=== PATIENT | female | born 1980 | race Caucasian/White ===

== ENCOUNTER 2017-11-13 14:27 | Day surgery (SDC) | payer BC ==
[2017-11-13 11:52] VITALS: BMI 19.7
[2017-11-13] MEDS ORDERED: Propofol 10 mg/ml Inj (20 ML) ONE (15:58)
[2017-11-13] MEDS ORDERED: Iodixanol 320 mg/ml 50 ml Sol IV ONE (15:58)
[2017-11-13] MEDS ORDERED: Iohexol 240 (50 ml) UR ONE (16:08)
[2017-11-13] MEDS ORDERED: Sevoflurane - Inhalation Anesthetic Liq (250 ml) ONE (16:16)
[2017-11-13] MEDS ORDERED: Oxycodone/Acetaminophen 5/325 mg Tab PO PRN (16:38)
[2017-11-13] MEDS: HYDROmorphone 0.5 mg/0.5 ml ISec IVP PRN ×2 (16:40→16:55)
[2017-11-13] MEDS ORDERED: Lactated Ringer's 1,000 ML IV SCH (16:45)
[2017-11-13] MEDS ORDERED: HYDROmorphone 0.5 mg/0.5 ml ISec ONE ×2 (16:56→17:19)
[2017-11-13] MEDS ORDERED: Gentamicin 80 mg/2mL Inj. ONE (16:59)
[2017-11-13] MEDS ORDERED: Gentamicin 80 mg/2mL Inj. IVPB ONE (17:00)
[2017-11-13] MEDS ORDERED: HYDROmorphone 0.5 mg/0.5 ml ISec IVP ONE (17:21)
[2017-11-13 18:00] VITALS: RESP 18; TEMP 97.8
[2017-11-13 19:32] VITALS: BP 117/70; PULSE 50; O2SAT 99
--- NOTE | 2017-11-14 10:52 | RAD ---
Date of service: 11/13/2017 PROCEDURE: Retrograde pyelogram HISTORY: HEMATURIA RECURRENT INFECTIONS COMPARISON: TECHNIQUE: 4.2 seconds of fluoro time. 0.53 mGy cumulative dose. 5 images obtained FINDINGS: There are no filling defects seen in the renal collecting systems or ureters. IMPRESSION: As above
--- NOTE | 2017-11-16 03:20 | PN ---
DATE: 11/13/2017 IMMEDIATE POSTOP NOTE SUBJECTIVE: See the history and physical and the operative note for further details, but basically a very pleasant lady, who is now in the recovery room in stable condition. See the history and physical and the operative note. Her vital signs remained stable. She is in the immediate postop workup. DIAGNOSES: Hematuria, voiding dysfunction, abdominal pain. PLAN: The plan is as follows, 1. The patient will now be discharged home on antibiotics. 2. We will discuss further options in terms of perhaps dietary therapy and other options and we will keep a close eye. She does have some underlying hematuria, but there was no obvious abnormalities today. We will need to keep a close eye on this patient. Patient remains stable now. John Funez MD
--- NOTE | 2017-11-16 11:30 | HP ---
UROLOGY ADMISSION HISTORY AND PHYSICAL REASON FOR ADMISSION: Workup of abdominal pain and hematuria. HISTORY OF PRESENT ILLNESS: Ms. Melendez is a very pleasant 37-year-old lady who has significant abdominal pain and generalized discomfort; whether she is voiding or nonvoiding, she has a feeling of discomfort in her bladder and she is now here today for further evaluation. PAST MEDICAL AND SURGICAL HISTORY: As listed on the chart, no history of an AL or CVA. Her PARTS DEPARTMENT MANAGER history is essentially otherwise unremarkable, baby is noted. REVIEW OF SYSTEMS: Listed above, noncontributory. MEDICATIONS: See chart. SOCIAL HISTORY: Her mother works in [employer] in the [employer] office. She is here today with her mother. She has actually graduated from [employer]. Otherwise unremarkable. No significant social history. ALLERGIES: . PHYSICAL EXAMINATION: GENERAL: A well-nourished female, in no apparent distress. VITAL SIGNS: Within normal limits, included in the chart. LYMPHATIC: No cervical or axillary lymphadenopathy. LUNGS: Clear. HEART: Normal S1 and S2. ABDOMEN: Overall, soft and nontender. No flank masses. There is no abdominal distention. PELVIC: She had a cysto that I mentioned now. No pelvic or rectal masses are detected. LABORATORY DATA: Labs, see the chart. DIAGNOSES: Abdominal pain and hematuria. A very pleasant 37-year-old lady. She is here for further diagnostic study. We explained to her the risks and benefits of not doing any workup. So, we are going to do a cystoscopy; if we see any abnormalities, do biopsy and then further plans will follow. She is here today for examination under anesthesia, for a cystoscopy, for possible biopsy and for bilateral retrograde pyelogram. I have explained to the patient the risks of workup, risks of not working up. Further plans will follow depending on what we find clinically. So, the plan is as follows: 1. Antibiotic prophylaxis. 2. Cystoscopy. 3. Possible biopsy. 4. Possible retrograde and then, further plans will follow. John Funez MD
--- NOTE | 2017-11-16 13:51 | OP ---
PROCEDURE DATE: 11/13/2017 UROLOGY OPERATIVE NOTE PREOPERATIVE DIAGNOSES: Hematuria, abdominal pain, bladder pain. POSTOPERATIVE DIAGNOSES: Hematuria, abdominal pain, bladder pain. PROCEDURES PERFORMED: Exam under anesthesia, cystoscopy, bilateral retrograde pyelogram. BLOOD LOSS: Less than 10 mL. SPECIMENS: None. COMPLICATIONS: None. INDICATIONS: See history and physical for further details. A very pleasant lady, 37 years old, here for further testing. We discussed options for workup and options of not working up. After discussing the options with the patient, he is here for the above-listed procedure. The other findings today are as follows: 1. There are no bladder lesions. 2. There are no specific abnormalities detected. Normal upper tracts are noted. Films were submitted to the radiologist to read, but I do not see any stones. Nearly essentially negative exam. There were no pelvic or rectal masses. For indications, see history and physical for further details. A very pleasant lady here for the above procedure. DESCRIPTION OF PROCEDURE: After obtaining informed consent, the patient was placed on the table. Routine monitors were placed. Time-out was called to confirm the patient positioning. Patient received antibiotic prophylaxis. We began the procedure in the following fashion. Cystoscope was introduced via the urethra. The bladder was inspected carefully, there were no bladder lesions. The ureteral orifice was identified, clear efflux from both, see the pictures taken on the chart. Bilateral retrograde pyelograms were performed. Biomedical Engineering Technician films were essentially unremarkable and there were no obvious abnormalities. Bladder was emptied, cystoscope removed. Patient tolerated the procedure well without complications. Exam under anesthesia revealed normal external genitalia. No pelvic or rectal masses. Patient tolerated the procedure without complications. John Funez MD
== END 2017-11-13 19:49 | disposition home or self-care (01) ==
LOC: SDS 14:27
PROVIDERS: ATTEND Urology
DX: R31.9 Hematuria, unspecified (principal); R10.9 Unspecified abdominal pain
CPT/HCPCS: 52005; 74420; 84703; J0690; J1170; J1580; J2405; J2704; J3010; J7120; Q9966; Q9967

== ENCOUNTER 2017-11-28 13:53 | Emergency (ER) | payer BC ==
[2017-11-28 13:54] VITALS: BMI 19.7
[2017-11-28] MEDS ORDERED: Albuterol-Ipratrop 3 mg / 0.5 (3 ml) UD IH STA (14:44)
--- NOTE | 2017-11-28 14:51 | ED PDOC ---
Arrival/HPI - General Chief Complaint: Shortness Of Breath Time Seen by Provider: 11/28/17 14:31 Historian: Patient, Parent - History of Present Illness Time/Duration: Other (Several weeks) Symptom Onset: Gradual Symptom Course: Worsening Quality: Other (Pleuritic) Severity Level: Mild Activities at Onset: Rest Associated Symptoms (Text): 11/28/17 14:49 Patient complains of a 2 to three-week history of pleuritic chest pain made worse by palpation breathing and movement along with shortness of breath. She had a sore throat several months ago. No cough congestion or URI. No sputum production. No fever or chills. No travel or exposure. No injury or trauma. No diaphoresis. No dizziness or lightheadedness. No nausea or vomiting. She does not appear ill or uncomfortable. Past Medical History - Cardiac Hx Pacemaker: No - Neurological Hx Paralysis: No - Hematological/Oncological Hx Blood Transfusions: No - Musculoskeletal/Rheumatological Hx Musculoskeletal Disorders: No - Psychiatric Hx Emotional Abuse: No Hx Physical Abuse: No Hx Substance Use: No - Surgical History Other/Comment: x2 C-sections - Anesthesia Hx Anesthesia Reactions: No Hx Malignant Hyperthermia: No - Suicidal Assessment Feels Threatened In Home Enviroment: No Family/Social History - Physician Review Nursing Documentation Reviewed: Yes Family/Social History: Unknown Family HX Smoking Status: Never Smoked Hx Alcohol Use: No Hx Substance Use: No Allergies/Home Meds Allergies/Adverse Reactions: Allergies No Known Allergies Allergy (Verified 11/28/17 14:15) Home Medications: Home Meds Medication Instructions Recorded Confirmed Propranolol [Inderal] 10 mg PO BID 11/28/17 11/28/17 Review of Systems - Physician Review All systems were reviewed & negative as marked: Yes - Review of Systems Constitutional: Normal Respiratory: SOB. absent: Cough, Sputum, Wheezing Cardiovascular: Chest Pain. absent: Palpitations, Syncope Gastrointestinal: Normal. absent: Abdominal Pain, Nausea, Vomiting Genitourinary Female: absent: Dysuria, Frequency, Hematuria Neurological: absent: Headache, Dizziness, Focal Weakness Physical Exam Vital Signs Temp Pulse Resp BP Pulse Ox 11/28/17 14:09 98.7 F 77 16 134/73 100 Temperature: Afebrile Blood Pressure: Normal Pulse: Regular Respiratory Rate: Normal Appearance: Positive for: Well-Appearing, Non-Toxic, Comfortable, Other (Anxious ) Pain Distress: None Mental Status: Positive for: Alert and Oriented X 3 - Systems Exam Head: Present: Atraumatic, Normocephalic Pupils: Present: PERRL Extroacular Muscles: Present: EOMI Conjunctiva: Present: Normal Ears: Present: NORMAL TM, Normal Canal. No: Erythema, TM Bulging Mouth: Present: Moist Mucous Membranes Pharnyx: No: ERYTHEMA, EXUDATE, TONSILS ENLARGED Neck: Present: Normal Range of Motion Respiratory/Chest: Present: Clear to Auscultation, Good Air Exchange, Decreased Breath Sounds, Tender to Palpation (Chest is tender to palpation which does reproduce her pain). No: Respiratory Distress, Accessory Muscle Use Cardiovascular: Present: Regular Rate and Rhythm, Normal S1, S2. No: Murmurs Abdomen: No: Tenderness, Distention, Peritoneal Signs, Rebound, Guarding Back: Present: Normal Inspection. No: CVA Tenderness Upper Extremity: Present: Normal Inspection. No: Cyanosis, Edema Lower Extremity: Present: Normal Inspection. No: Edema, CALF TENDERNESS Neurological: Present: GCS=15, CN II-XII Intact, Speech Normal, Motor Func Grossly Intact Skin: Present: Warm, Dry, Normal Color. No: Rashes Psychiatric: Present: Alert, Oriented x 3, Normal Insight, Normal Concentration , Anxious Medical Decision Making ED Course and Treatment: 11/28/17 14:51 EKG shows normal sinus rhythm rate approximately [address] or T-wave changes. 11/28/17 16:20 Markedly improved post Toradol. Workup is unremarkable. Treat as pleurisy. Follow-up with PMD. Follow up in ER as needed. - Lab Interpretations Lab Results: 11/28/17 15:10 11/28/17 15:10 Lab Results 11/28/17 15:10: Sodium 139, Potassium 4.3, Chloride 105, Carbon Dioxide 23, Anion Gap 16, BUN 10, Creatinine 0.5 L, Est GFR ( Amer) > 60, Est GFR ( Non-Af Amer) > 60, Random Glucose 92, Calcium 9.2, Magnesium 2.2, Total Bilirubin 0.4, AST 23, ALT 23, Alkaline Phosphatase 66, Lactate Dehydrogenase 314 L, Total Creatine Kinase 60, Troponin I < 0.01, NT-Pro-B Natriuret Pep 47.9 , Total Protein 7.7, Albumin 4.5, Globulin 3.2, Albumin/Globulin Ratio 1.4 11/28/17 15:10: D-Dimer, Quantitative 77 11/28/17 15:10: WBC 8.2, RBC 4.12, Hgb 12.8, Hct 37.3, MCV 90.5, MCH 31.1, MCHC 34.3, RDW 13.3, Plt Count 227, MPV 11.1 H, Gran % 77.7 H, Lymph % (Auto) 17.8 L , [place] % (Auto) 3.8, Eos % (Auto) 0.5 L, Baso % (Auto) 0.2, Gran # 6.36, Lymph # (Auto) 1.5, [place] # (Auto) 0.3, Eos # (Auto) 0.0, Baso # (Auto) 0.02 11/28/17 14:40: Urine Color Light yellow, Urine Appearance Slight-cloudy, Urine pH 8.0, Ur Specific [place] 1.020, Urine Protein Trace H, Urine Glucose (UA) Negative, Urine Ketones Negative, Urine Blood Negative, Urine Nitrate Negative, Urine Bilirubin Negative, Urine Urobilinogen 0.2, Ur Leukocyte Esterase Negative , Urine RBC Pending, Urine WBC Pending - RAD Interpretation Radiology Orders: 11/28/17 14:44 CHEST PORTABLE [RAD] Stat Chest one view shows no infiltrate or effusion cardiomegaly or pneumothorax. Blackjack Dealer: Radiologist - Medication Orders Current Medication Orders: Discontinued Medications Albuterol/Ipratropium (Duoneb 3 Mg/0.5 Mg (3 Ml) Ud) 3 ml IH STAT STA Stop: 11/28/17 14:45 Last Admin: 11/28/17 15:34 Dose: 3 ml Ketorolac Tromethamine (Toradol) 15 mg IVP STAT STA Stop: 11/28/17 14:49 Last Admin: 11/28/17 15:34 Dose: 15 mg MAR Pain Assessment Document 11/28/17 15:34 [email or web address] (Rec: 11/28/17 15:34 [email or web address] [id number]) Pain Reassessment Is this a pain reassessment? No Sleep Is patient sleeping during reassessment? No Presence of Pain Presence of Pain Yes Pain Scale Used Pain Scale Used Numeric Location Pain Location Body Site Generalized Description Description Constant Intensity of Pain at present 3 Pain Behavior Facial Grimacing Aggravating Factors Changing Position Alleviating Factors/Management Medication Techniques Alleviating Factors Medication IVP Administration Document 11/28/17 15:34 [email or web address] (Rec: 11/28/17 15:34 [email or web address] [id number]) Charges for Administration # of IVP Administrations 1 Disposition/Present on Arrival - Present on Arrival Any Indicators Present on Arrival: No History of DVT/PE: No History of Uncontrolled Diabetes: No Urinary Catheter: No History of Decub. Ulcer: No History Surgical Site Infection Following: None - Disposition Have Diagnosis and Disposition been Completed?: Yes Diagnosis: Pleuritic chest pain, Dyspnea Disposition: HOME/ ROUTINE Disposition Time: 16:21 Patient Plan: Discharge Condition: IMPROVED Discharge Instructions (ExitCare): Chest Pain (ED), Pleuritic Chest Pain Additional Instructions: Follow-up with PMD. Follow up in ER as needed. Do not exert herself. Prescriptions: Naproxen [Naprosyn] 500 mg PO BID #14 tab Forms: [employer] (Lithuanian)
[2017-11-28 15:20] LABS: URINE BILIRUBIN NEGATIVE (NEGATIVE); URINE BLOOD NEGATIVE (NEGATIVE); URINE GLUCOSE (UA) NEGATIVE (NEGATIVE); URINE LEUKOCYTE ESTERASE NEGATIVE Leu/uL (NEGATIVE); URINE PROTEIN TRACE mg/dL (<30 mg/dL); URINE UROBILINOGEN 0.2 E.U./dL (<1 E.U./dL)
[2017-11-28 15:22] LABS: URINE APPEARANCE SLIGHT-CLOUDY (CLEAR); URINE COLOR LIGHT YELLOW (YELLOW)
[2017-11-28 15:23] LABS: BASO # 0.02 K/mm3 (0.0-2.0); BASO % 0.2 % (0.0-3.0); EOS % 0.5 % (1.5-5.0); GRAN # 6.36 (1.4-6.5); GRAN % 77.7 % (50.0-68.0); HEMOGLOBIN 12.8 g/dL (12.0-16.0); LYMPH # 1.5 (1.2-3.4); LYMPH % 17.8 % (22.0-35.0); MEAN CELL VOLUME 90.5 fl (80.0-105.0); MEAN CORPUSCULAR HEMOGLOBIN 31.1 pg (25.0-35.0); MEAN CORPUSCULAR HGB CONC 34.3 g/dl (31.0-37.0); MEAN PLATELET VOLUME 11.1 fl (7.0-11.0); MONO # 0.3 (0.1-0.6); MONO % 3.8 % (1.0-6.0); RBC 4.12 10^6/uL (3.5-6.1); RED CELL DISTRIBUTION WIDTH 13.3 % (11.5-14.5); WHITE BLOOD COUNT 8.2 10^3/ul (4.5-11.0)
--- NOTE | 2017-11-28 15:26 | RAD ---
Date of service: 11/28/2017 HISTORY: Shortness of breath. COMPARISON: No prior. FINDINGS: LUNGS: No active pulmonary disease. PLEURA: No significant pleural effusion identified, no pneumothorax apparent. CARDIOVASCULAR: Normal. OSSEOUS STRUCTURES: No significant abnormalities. VISUALIZED UPPER ABDOMEN: Normal. OTHER FINDINGS: None. IMPRESSION: No active disease.
[2017-11-28 15:44] LABS: ALB/GLOB RATIO 1.4 (1.1-1.8); ALBUMIN 4.5 g/dL (3.0-4.8); ALT/SGPT 23 U/L (7-56); AST/SGOT 23 U/L (14-36); BLOOD UREA NITROGEN 10 mg/dL (7-21); CALCIUM 9.2 mg/dL (8.4-10.5); GFR AFRICAN-AMERICAN > 60; GFR NON-AFRICAN AMERICAN > 60
[2017-11-28 15:55] LABS: B-TYPE NATRIURETIC PEPTIDE 47.9 pg/mL (0-450); TROPONIN I < 0.01 ng/mL
[2017-11-28 17:09] VITALS: RESP 19
[2017-11-28 17:10] VITALS: BP 130/70; PULSE 79; TEMP 98.4; O2SAT 99
[2017-11-28 17:18] LABS: URINE AMORPHOUS SEDIMENT SMALL; URINE BACTERIA TRACE (NEG); URINE RBC 0 - 2 /hpf (0-2); URINE WBC 0 - 2 /hpf (0-6)
--- NOTE | 2017-11-29 12:57 | CARD ---
APPROVED REPORT Date of service: 11/28/2017 EKG Measurement Heart [id number] <Conclusion> Normal sinus rhythm with sinus arrhythmia Normal ECG
== END 2017-11-28 16:35 | disposition home or self-care (01) ==
LOC: ED 13:53
DX: R06.00 Dyspnea, unspecified (principal); R07.81 Pleurodynia
CPT/HCPCS: 71045; 80053; 81001; 82550; 83615; 83735; 83880; 84484; 85025; 85378; 93005; 94640; 96374; 99283; J1885

== ENCOUNTER 2018-02-15 20:25 | Emergency (ER) | payer BC ==
[2018-02-15 20:57] VITALS: BMI 20.5
[2018-02-15 20:58] VITALS: RESP 18; TEMP 98.1
[2018-02-15] MEDS: Albuterol-Ipratrop 3 mg / 0.5 (3 ml) UD IH SCH ×3 (21:41→22:16)
[2018-02-15 23:45] VITALS: BP 126/82; PULSE 82; O2SAT 100
--- NOTE | 2018-02-16 03:49 | ED PDOC ---
Arrival/HPI - General Historian: Patient - History of Present Illness Narrative History of Present Illness (Text): 02/16/18 03:49 37 y/o female with no significant PMH presents to ED c/o cough and chest pressure when coughing for the last week. Associated headache and sinus conge stion. Cough produces small amounts of clear sputum. Pt states chest feels tight and it is difficult to take a deep breath. Pt has had symptoms like this in the past and was treated with a Z-ubaldo with relief of symptoms. Denies fevers, chills, vision changes, abdominal pain, N/V. <Mell Paulino - Last Filed: 02/16/18 03:45> <Atif Ramirez - Last Filed: 02/18/18 06:26> - General Chief Complaint: Chest Pain Time Seen by Provider: 02/15/18 21:31 Past Medical History - Provider Review Nursing Documentation Reviewed: Yes - Infectious Disease Hx of Infectious Diseases: None - Cardiac Hx Pacemaker: No - Neurological Hx Paralysis: No - Hematological/Oncological Hx Blood Transfusions: No - Musculoskeletal/Rheumatological Hx Musculoskeletal Disorders: No - Psychiatric Hx Physical Abuse: No Hx Substance Use: No - Surgical History Other/Comment: x2 C-sections - Anesthesia Hx Anesthesia Reactions: No Hx Malignant Hyperthermia: No - Suicidal Assessment Feels Threatened In Home Enviroment: No <Mell Paulino - Last Filed: 02/16/18 03:45> Family/Social History - Physician Review Nursing Documentation Reviewed: Yes Family/Social History: No Known Family HX Smoking Status: Never Smoked Hx Alcohol Use: No Hx Substance Use: No <Mell Paulino - Last Filed: 02/16/18 03:45> Allergies/Home Meds <Mell Paulino - Last Filed: 02/16/18 03:45> <Atif Ramirez - Last Filed: 02/18/18 06:26> Allergies/Adverse Reactions: Allergies No Known Allergies Allergy (Verified 02/15/18 20:57) Review of Systems - Physician Review All systems were reviewed & negative as marked: Yes - Review of Systems Constitutional: Normal Eyes: Normal. absent: Vision Changes ENT: Normal. absent: Hearing Changes, Sore Throat, Sinus Congestion Respiratory: SOB, Cough, Sputum. absent: Wheezing Cardiovascular: Chest Pain (when coughing). absent: Palpitations Gastrointestinal: Normal. absent: Abdominal Pain, Nausea, Vomiting Genitourinary Female: Normal Musculoskeletal: Normal Skin: Normal. absent: Rash Neurological: Normal. absent: Headache, Dizziness Endocrine: Normal <Mell Paulino - Last Filed: 02/16/18 03:45> Physical Exam Vital Signs Reviewed: Yes Vital Signs Temp Pulse Resp BP Pulse Ox 02/15/18 23:35 82 18 126/82 100 02/15/18 20:57 98.1 F 84 18 112/75 98 Temperature: Afebrile Blood Pressure: Normal Pulse: Regular Respiratory Rate: Normal Appearance: Positive for: Well-Appearing, Non-Toxic, Comfortable Pain Distress: None Mental Status: Positive for: Alert and Oriented X 3 - Systems Exam Head: Present: Atraumatic, Normocephalic Pupils: Present: PERRL Extroacular Muscles: Present: EOMI Conjunctiva: Present: Normal Ears: Present: Normal, NORMAL TM, Normal Canal Mouth: Present: Moist Mucous Membranes Pharnyx: Present: Normal. No: ERYTHEMA, EXUDATE, TONSILS ENLARGED, Peritonsilar Swelling, Uvular Deviation, Muffled/Hoarse Voice, Soft Palate/Uvular Edema Nose (External): Present: Atraumatic Nose (Internal): Present: Normal Inspection, No Active Bleeding, Moist Neck: Present: Normal Range of Motion Respiratory/Chest: Present: Clear to Auscultation, Decreased Breath Sounds. No: Respiratory Distress, Accessory Muscle Use Cardiovascular: Present: Regular Rate and Rhythm, Normal S1, S2. No: Murmurs Abdomen: Present: Normal Bowel Sounds. No: Tenderness, Distention, Peritoneal Signs Back: Present: Normal Inspection Upper Extremity: Present: Normal Inspection, Normal ROM, NORMAL PULSES. No: Tenderness, Swelling Lower Extremity: Present: Normal Inspection, NORMAL PULSES, Normal ROM. No: Edema Skin: Present: Warm, Dry, Normal Color. No: Rashes Lymphatic: No: Cervical Adenopathy Psychiatric: Present: Alert, Oriented x 3, Normal Insight, Normal Concentration <Mell Paulino - Last Filed: 02/16/18 03:45> Vital Signs Temp Pulse Resp BP Pulse Ox 02/15/18 23:35 82 18 126/82 100 02/15/18 20:57 98.1 F 84 18 112/75 98 <Atif Ramirez - Last Filed: 02/18/18 06:26> Medical Decision Making ED Course and Treatment: 02/16/18 03:47 Initial plan: --EKG --CXR --Duoneb EKG: rate 77; normal sinus rhythm; no ischemic changes CXR read by me: no active disease On re-eval: lungs clear, better air exchange heard Impression: Acute bronchitis Plan: -Z-ubaldo -followup with PMD -return to ED if symptoms worsen - RAD Interpretation Radiology Orders: 02/15/18 21:32 CXR (PA/LAT) [CHEST TWO VIEWS (PA/LAT)] [RAD] Stat - Medication Orders Current Medication Orders: Discontinued Medications Acetaminophen (Tylenol 325mg Tab) 650 mg PO STAT STA Stop: 02/15/18 23:24 Last Admin: 02/15/18 23:30 Dose: 650 mg Albuterol/Ipratropium (Duoneb 3 Mg/0.5 Mg (3 Ml) Ud) 3 ml IH Q15M PAO Stop: 02/15/18 22:16 Last Admin: 02/15/18 22:16 Dose: 3 ml <Mell Paulino - Last Filed: 02/16/18 03:45> ED Course and Treatment: 02/18/18 06:26 The documented history was done by the physician soil biology teacher. The documented physical exam was done by the physician soil biology teacher. The documented procedures were done by the physician soil biology teacher, I was available for consultation during the PA/MUD WORKER evaluation. The chart was reviewed by me, and I agree with the management and plan. - RAD Interpretation Radiology Orders: 02/15/18 21:32 CXR (PA/LAT) [CHEST TWO VIEWS (PA/LAT)] [RAD] Stat - Medication Orders Current Medication Orders: Discontinued Medications Acetaminophen (Tylenol 325mg Tab) 650 mg PO STAT STA Stop: 02/15/18 23:24 Last Admin: 02/15/18 23:30 Dose: 650 mg Albuterol/Ipratropium (Duoneb 3 Mg/0.5 Mg (3 Ml) Ud) 3 ml IH Q15M PAO Stop: 02/15/18 22:16 Last Admin: 02/15/18 22:16 Dose: 3 ml <Atif Ramirez - Last Filed: 02/18/18 06:26> Disposition/Present on Arrival - Present on Arrival Any Indicators Present on Arrival: No History of DVT/PE: No History of Uncontrolled Diabetes: No Urinary Catheter: No History of Decub. Ulcer: No History Surgical Site Infection Following: None - Disposition Have Diagnosis and Disposition been Completed?: Yes Disposition Time: 23:00 Patient Plan: Discharge <Mell Paulino - Last Filed: 02/16/18 03:45> <Atif Ramirez - Last Filed: 02/18/18 06:26> - Disposition Diagnosis: Bronchitis Disposition: HOME/ ROUTINE Condition: IMPROVED Discharge Instructions (ExitCare): Acute Bronchitis Additional Instructions: Take antibiotic as prescribed Followup with primary within 2 days Return to ED if symptoms worsen Prescriptions: Azithromycin [Z-Ubaldo] 250 mg PO DAILY #6 tab Referrals: Ct Hernandez DO [Primary Care Provider] - Follow up with primary Forms: [employer] (Yoruba), WORK NOTE
--- NOTE | 2018-02-16 08:54 | RAD ---
HISTORY: Evaluate for pneumonia COMPARISON: No prior. TECHNIQUE: Chest PA and lateral FINDINGS: LINES AND TUBES: None. LUNG AND PLEURA: The lungs are well inflated and clear. No pleural effusion or pneumothorax. HEART AND MEDIASTINUM: The heart is not enlarged. The hilar and mediastinal contours are within normal limits. SKELETAL STRUCTURES: The bony structures are within normal limits for the patient's age. VISUALIZED UPPER ABDOMEN: Normal. OTHER FINDINGS: None. IMPRESSION: No active pulmonary disease.
--- NOTE | 2018-02-16 15:53 | CARD ---
APPROVED REPORT Date of service: 02/15/2018 EKG Measurement Heart [id number] <Conclusion> Normal sinus rhythm Normal ECG
== END 2018-02-15 23:35 | disposition home or self-care (01) ==
LOC: ED 20:25
DX: J40 Bronchitis, not specified as acute or chronic (principal)

== ENCOUNTER 2018-07-23 10:48 | Outpatient (CLI) | payer BC | END 2018-07-23 10:49 | disposition home or self-care (01) | LOC: RAD 10:48 ==